=== PATIENT | female | born 1990 | race Caucasian/White ===

== ENCOUNTER 2017-05-17 22:22 | Emergency (ER) | payer OTHER ==
--- NOTE | 2017-05-17 22:45 | ERPHSYRPT ---
- History of Present Illness Time Seen by Provider: 05/17/17 22:41 Historian: patient, family Exam Limitations: no limitations Patient Subjective Stated Complaint: vomitting and nausea, pain in back Triage Nursing Assessment: pt alert and oriented, ate cheesburger at [employer] last nite and has been puking and running fever since then Physician History: pt without abd pain , but has back pain and vomiting and suspects food poisoning from yesterday. abd is soft and nontender at this time; Timing/Duration: today Activities at Onset: none Abdominal Pain Onset Location: other (no pain in abd) Pain Radiation: back Severity of Pain-Max: moderate Severity of Pain-Current: moderate Modifying Factors: Improves With: nothing Associated Symptoms: back, fever/chills, vomiting Previous symptoms: no prior history Allergies/Adverse Reactions: No Known Drug Allergies Allergy (Unverified 07/06/12 23:18) Home Medications: Vits W-Ca,Fe,FA(<1Mg) [] 1 each PO 07/06/12 [History] Hx Tetanus, Diphtheria Vaccination/Date Given: Yes Hx Influenza Vaccination/Date Given: No Hx Pneumococcal Vaccination/Date Given: No Immunizations Up to Date: Yes - Review of Systems Constitutional: Fever, Chills Eyes: No Symptoms Ears, Nose, & Throat: No Symptoms Respiratory: No Cough, No Dyspnea Cardiac: No Chest Pain, No Edema, No Syncope Abdominal/Gastrointestinal: Nausea, Vomiting, No Abdominal Pain, No Diarrhea Genitourinary Symptoms: No Dysuria Musculoskeletal: No Back Pain, No Neck Pain Skin: No Rash Neurological: No Dizziness, No Focal Weakness, No Sensory Changes Psychological: No Symptoms Endocrine: No Symptoms Hematologic/Lymphatic: No Symptoms Immunological/Allergic: No Symptoms All Other Systems: Reviewed and Negative - Past Medical History Pertinent Past Medical History: No History: Other - Past Surgical History Past Surgical History: Yes Genitourinary: Other Other Surgical History: D&C - Social History Smoking Status: Current every day smoker Exposure to second hand smoke: No Drug Use: none Patient Lives Alone: No - Female History Hx Now: Yes (8 weeks) - Nursing Vital Signs Nursing Vital Signs: Initial Vital Signs Temperature 102.2 F Temperature Source Oral Pulse Rate 106 Respiratory Rate 18 Blood Pressure [Right Arm] 100/53 Pain Intensity 0 - Physical Exam General Appearance: mild distress, alert Eye Exam: PERRL/EOMI, eyes nml inspection Ears, Nose, Throat Exam: normal ENT inspection, pharynx normal, moist mucous membranes Neck Exam: normal inspection, non-tender, supple, full range of motion Respiratory Exam: normal breath sounds, lungs clear, No respiratory distress Cardiovascular Exam: regular rate/rhythm, normal heart sounds Gastrointestinal/Abdomen Exam: soft, No tenderness, No mass Pelvic Exam: deferred Rectal Exam: deferred Back Exam: normal inspection, normal range of motion, No CVA tenderness, No vertebral tenderness Extremity Exam: normal inspection, normal range of motion, pelvis stable Neurologic Exam: alert, oriented x 3, cooperative, normal mood/affect, nml cerebellar function, sensation nml, No motor deficits Skin Exam: normal color, warm, dry SpO2 Interpretation: normal SpO2: 96 Oxygen Delivery: Room Air - Course Nursing assessment & vital signs reviewed: Yes Ordered Tests: Active Orders 24 hr Category Date Time Status IV Insertion STAT Care 05/17/17 22:46 Active AMYLASE Stat Lab 05/17/17 23:00 Completed CBC W DIFF Stat Lab 05/17/17 23:00 Completed CMP Stat Lab 05/17/17 23:00 Completed CULTURE,URINE Stat Lab 05/17/17 23:00 Received HCG QUALITATIVE,SERUM Stat Lab 05/17/17 23:00 Completed LIPASE Stat Lab 05/17/17 23:00 Completed Lactic Acid Stat Lab 05/17/17 22:46 Completed Lactic Acid Stat Lab 05/18/17 01:05 Completed UA W/ MICROSCOPIC Stat Lab 05/17/17 23:00 Completed Medication Summary Discontinued Medications Generic Name Dose Route Start Last Admin Trade Name nOelia PRN Reason Stop Dose Admin Acetaminophen 650 mg 05/17/17 23:35 Tylenol 325 Mg PO 05/17/17 23:36 STAT ONE Acetaminophen Confirm 05/17/17 23:38 Feverall 325 Mg Administered 05/17/17 23:39 Dose 650 mg .ROUTE .STK-MED ONE Acetaminophen 650 mg 05/17/17 23:41 05/17/17 23:46 Feverall 650 Mg MO 05/17/17 23:42 650 mg STAT ONE Administration Famotidine 20 mg 05/17/17 22:46 05/17/17 23:08 Pepcid 20 Mg Vial IV 05/17/17 22:47 20 mg STAT ONE Administration Famotidine Confirm 05/17/17 23:01 Pepcid 20 Mg Vial Administered 05/17/17 23:02 Dose 20 mg IV .STK-MED ONE Sodium Chloride 1,000 mls @ 999 mls/hr 05/17/17 22:46 05/17/17 23:04 Sodium Chloride 0.9% 1000 Ml IV 05/17/17 23:46 999 mls/hr .Q1H1M STA Administration Sodium Chloride Confirm 05/17/17 23:01 Sodium Chloride 0.9% 1000 Ml Administered 05/17/17 23:02 Dose 1,000 mls @ ud .ROUTE .STK-MED ONE Sodium Chloride 1,000 mls @ 999 mls/hr 05/18/17 00:33 05/18/17 00:35 Sodium Chloride 0.9% 1000 Ml IV 05/18/17 01:33 999 mls/hr .Q1H1M STA Administration Sodium Chloride Confirm 05/18/17 00:34 Sodium Chloride 0.9% 1000 Ml Administered 05/18/17 00:35 Dose 1,000 mls @ ud .ROUTE .STK-MED ONE Ceftriaxone Sodium/Dextrose 1 g in 50 mls @ 100 mls/hr 05/18/17 01:10 01:29 Rocephin 1 Gm-D5w 50 Ml Bag IV 05/18/17 01:39 100 mls/hr STAT STA Administration Ceftriaxone Sodium/Dextrose Confirm 05/18/17 01:25 Rocephin 1 Gm-D5w 50 Ml Bag Administered 05/18/17 01:26 Dose 1 g in 50 mls @ ud IV .STK-MED ONE Ondansetron HCl 4 mg 05/17/17 22:46 05/17/17 23:06 Zofran 4 Mg/2 Ml Vial IV 05/17/17 22:47 4 mg STAT ONE Administration Ondansetron HCl Confirm 05/17/17 23:01 Zofran 4 Mg/2 Ml Vial Administered 05/17/17 23:02 Dose 4 mg .ROUTE .STK-MED ONE Pantoprazole Sodium 40 mg 05/17/17 22:46 05/17/17 23:08 Protonix 40 Mg Iv IV 05/17/17 22:47 40 mg STAT ONE Administration Pantoprazole Sodium Confirm 05/17/17 23:01 Protonix 40 Mg Iv Administered 05/17/17 23:02 Dose 40 mg IV .STK-MED ONE Lab/Rad Data: Laboratory Result Diagrams 05/17/17 23:00 05/17/17 23:00 Laboratory Results 05/18/17 05/17/17 05/17/17 Range/Units 01:05 23:00 23:00 WBC (4.0-10.5) K/mm3 RBC (4.1-5.4) M/mm3 Hgb (12.0-16.0) gm/dl Hct (35-47) % MCV (78-100) fl MCH (26-32) pg MCHC (32-36) g/dl RDW (11.5-14.0) % Plt Count (150-450) K/mm3 MPV (6-9.5) fl Gran % (36.0-66.0) % Lymphocytes % (24.0-44.0) % Monocytes % (0.0-12.0) % Eosinophils % (0.00-5.0) % Basophils % (0.0-0.4) % Basophils # (0-0.4) Sodium 136 (136-145) mEq/L Potassium 3.7 (3.5-5.1) mEq/L Chloride 100 (98-107) mEq/L Carbon Dioxide 22.8 (21-32) mEq/L Anion Gap 16.8 H (5-15) MEQ/L BUN 12 (9-20) mg/dL Creatinine 1.39 H (0.55-1.30) mg/dl Estimated GFR 49 ML/MIN Glucose 163 H (70-110) MG/DL Lactic Acid 1.1 (0.4-2.0) Calcium 9.2 (8.5-10.1) mg/dL Total Bilirubin 0.70 (0.2-1.0) mg/dL AST 9 L (15-37) U/L ALT 14 (12-78) U/L Alkaline Phosphatase 110 (46-116) U/L Serum Total Protein 8.0 (6.4-8.2) gm/dL Albumin 3.8 (3.4-5.0) g/dL Amylase 33 (25-115) U/L Lipase 65 L (73-393) U/L Serum , Qual NEGATIVE (Negative) Ur Collection Type Urine Color (YELLOW) Urine Appearance (CLEAR) Urine pH (5-6) Ur Specific [place] (1.005-1.025) Urine Protein (Negative) Urine Ketones (NEGATIVE) Urine Blood (0-5) José/ul Urine Nitrite (NEGATIVE) Urine Bilirubin (NEGATIVE) Urine Urobilinogen (0-1) mg/dL Ur Leukocyte Esterase (NEGATIVE) Urine Microscopic RBC (0-2) /HPF Urine Microscopic WBC (0-5) /HPF Ur Epithelial Cells (FEW) /HPF Urine Bacteria (NEGATIVE) /HPF Urine Glucose (NEGATIVE) mg/dL Specimen Received 05/17/17 05/17/17 05/17/17 Range/Units 23:00 23:00 22:46 WBC 12.0 H (4.0-10.5) K/mm3 RBC 4.76 (4.1-5.4) M/mm3 Hgb 13.4 (12.0-16.0) gm/dl Hct 40.8 (35-47) % MCV 85.7 (78-100) fl MCH 28.2 (26-32) pg MCHC 32.8 (32-36) g/dl RDW 15.8 H (11.5-14.0) % Plt Count 179 (150-450) K/mm3 MPV 11.8 H (6-9.5) fl Gran % 88.5 H (36.0-66.0) % Lymphocytes % 6.3 L (24.0-44.0) % Monocytes % 5.0 (0.0-12.0) % Eosinophils % 0.0 (0.00-5.0) % Basophils % 0.2 (0.0-0.4) % Basophils # 0.02 (0-0.4) Sodium (136-145) mEq/L Potassium (3.5-5.1) mEq/L Chloride (98-107) mEq/L Carbon Dioxide (21-32) mEq/L Anion Gap (5-15) MEQ/L BUN (9-20) mg/dL Creatinine (0.55-1.30) mg/dl Estimated GFR ML/MIN Glucose (70-110) MG/DL Lactic Acid 2.4 H (0.4-2.0) Calcium (8.5-10.1) mg/dL Total Bilirubin (0.2-1.0) mg/dL AST (15-37) U/L ALT (12-78) U/L Alkaline Phosphatase (46-116) U/L Serum Total Protein (6.4-8.2) gm/dL Albumin (3.4-5.0) g/dL Amylase (25-115) U/L Lipase (73-393) U/L Serum , Qual (Negative) Ur Collection Type CLEAN CATCH Urine Color YELLOW (YELLOW) Urine Appearance CLOUDY (CLEAR) Urine pH 6.0 (5-6) Ur Specific [place] 1.025 (1.005-1.025) Urine Protein 100 (Negative) Urine Ketones NEGATIVE (NEGATIVE) Urine Blood 250 (0-5) José/ul Urine Nitrite POSITIVE (NEGATIVE) Urine Bilirubin NEGATIVE (NEGATIVE) Urine Urobilinogen NORMAL (0-1) mg/dL Ur Leukocyte Esterase 2+ (NEGATIVE) Urine Microscopic RBC 5-10 (0-2) /HPF Urine Microscopic WBC >100 (0-5) /HPF Ur Epithelial Cells MODERATE (FEW) /HPF Urine Bacteria MANY (NEGATIVE) /HPF Urine Glucose NEGATIVE (NEGATIVE) mg/dL Specimen Received 05/17/17 2300 - Progress Progress: improved, re-examined Progress Note: 05/18/17 01:46 symptoms resolved in ED; discussed with pt and will place on ab to cover infect diarrhea and UTI and return if any problems ; pt is advised that undetected pathology could still be evolving and need for f/u and retesting of urine as well. Counseled pt/family regarding: lab results, diagnosis, need for follow-up - Departure Time of Disposition: 01:48 Departure Disposition: Home Clinical Impression: UTI (urinary tract infection) Condition: Good Critical Care Time: No Instructions: Vomiting -- Adult, Urinary Tract Infection (UTI), Diarrhea and Traveler's Diarrhea -- Adult Additional Instructions: followup to retest urine with your dr and return meantime if not improving; There may be additional problems which have not been detected yet. also some renal function is elevated and needs retesting with your Dr as well. Prescriptions: Promethazine HCl 25 mg Supp [Phenergan 25 mg Supp] 25 mg MO Q8HPRN PRN # 10 supp.rect PRN Reason: Nausea Cephalexin Mh 500 mg [Keflex 500 mg] 500 mg PO TID #30 capsule Ciprofloxacin [Cipro 500 MG] 500 mg PO BID #10 tablet
[2017-05-17] MEDS ORDERED: Pepcid 20 MG VIAL IV ONE ×2 (22:46→23:01)
[2017-05-17] MEDS ORDERED: Zofran 4 MG/2 ML VIAL IV ONE (22:46)
[2017-05-17] MEDS ORDERED: Sodium Chloride 0.9% 1000 ML 1,000 ML IV STA (22:46)
[2017-05-17] MEDS ORDERED: PROTONIX 40 MG IV IV ONE ×2 (22:46→23:01)
[2017-05-17 22:57] LABS: Lactic Acid 2.4 (0.4-2.0)
[2017-05-17] MEDS ORDERED: Sodium Chloride 0.9% 1000 ML 1,000 ML ONE (23:01)
[2017-05-17] MEDS ORDERED: Zofran 4 MG/2 ML VIAL ONE (23:01)
[2017-05-17 23:06] LABS: BASOPHIL % 0.2 % (0.0-0.4); Granulocytes % 88.5 % (36.0-66.0); Lymphocytes % 6.3 % (24.0-44.0); Mean Cell Volume 85.7 fl (78-100); Mean Corpuscular Hemoglobin 28.2 pg (26-32); Mean Platelet Volume 11.8 fl (6-9.5); Platelet Count 179 K/mm3 (150-450); Red Blood Count 4.76 M/mm3 (4.1-5.4); Red Cell Distribution Width 15.8 % (11.5-14.0)
[2017-05-17 23:17] LABS: ALBUMIN 3.8 g/dL (3.4-5.0); ANION GAP 16.8 MEQ/L (5-15); BILIRUBIN,TOTAL 0.7 mg/dL (0.2-1.0); Carbon Dioxide 22.8 mEq/L (21-32); Potassium 3.7 mEq/L (3.5-5.1)
[2017-05-17] MEDS ORDERED: TYLENOL 325 MG PO ONE (23:35)
[2017-05-17] MEDS ORDERED: FEVERALL 325 MG ONE (23:38)
[2017-05-17] MEDS ORDERED: FEVERALL 650 MG PR ONE (23:41)
[2017-05-17 23:43] LABS: ADD URINE CULTURE? YES (NO); Bacteria MANY /HPF (NEGATIVE); Bilirubin NEGATIVE (NEGATIVE); Blood 250 Ery/ul (0-5); COMPLETE URINE MICROSCOPIC? YES; Collection Type CLEAN CATCH; Epithelial Cells MODERATE /HPF (FEW); Glucose NEGATIVE (NEGATIVE); Leukocyte Esterase 2+ (NEGATIVE); WBC >100 /HPF (0-5)
[2017-05-18] MEDS ORDERED: Sodium Chloride 0.9% 1000 ML 1,000 ML IV STA (00:33)
[2017-05-18] MEDS ORDERED: Sodium Chloride 0.9% 1000 ML 1,000 ML ONE (00:34)
[2017-05-18] MEDS ORDERED: ROCEPHIN 1 Gm-D5w 50 ml Bag** 1 G/50 ML IVPB IV STA (01:10)
[2017-05-18] MEDS ORDERED: ROCEPHIN 1 Gm-D5w 50 ml Bag** 1 G/50 ML IVPB IV ONE (01:25)
[2017-05-18 02:05] VITALS: BP 100/53; PULSE 100; O2SAT 100
== END 2017-05-18 02:06 | disposition home or self-care (01) ==
LOC: ED 22:22
DX: N39.0 Urinary tract infection, site not specified (principal); R11.2 Nausea with vomiting, unspecified; M54.5 Low back pain
CPT/HCPCS: 36000; 36415; 80053; 81000; 82150; 83605; 83690; 84703; 85025; 87077; 87086; 87186; 96360; 96361; 96365; 99284; J0696; J2405; A9270-GY

== ENCOUNTER 2023-08-18 13:29 | Emergency (ER) | payer OTHER ==
--- NOTE | 2023-08-18 13:33 | ERPHSYRPT ---
- History of Present Illness Time Seen by Provider: 08/18/23 13:33 Source: patient, other (Significant other provided independent, additional medical history) Exam Limitations: clinical condition Physician History: This is a 32-year-old white female patient of Dr. Vizcarra who has had sinus tachycardia as far back as January 2023. She states that her heart rate typically runs in the 110 to 115 bpm. She has had several specialist out of [facility] evaluate her. The anatomic pathology manager and emergency vehicle operations instructor were waiting for the validation specialist to perform there work-up. The validation specialist told the patient that rheumatology is not her primary issue. The emergency vehicle operations instructor evaluated her and stated that hematology is not her primary issue. Real Estate Instructor, Payal Miller, per patient report stated that the patient needed to take vitamins and drink more fluids. A cardiac stress test was performed today. The patient was found to have a heart rate in the 140 bpm. The patient was short of breath. Her heart rate never came down after brief evaluation and therefore patient was sent to the emergency department for further evaluation and management. Patient has a prescription for metoprolol which she only takes as needed. She states that this medication does slow her heart rate down. However, it also makes her dizzy and she has had syncopal episodes because it dropped her blood pressure significantly. Patient is a daily smoker of cigarettes. Associated with the shortness of breath today was some sharp pain in the left anterior chest without radiation. She also feels a little weak. She states that the heart rate of 130 to 140 bpm is fast for her. She has an appointment to see a anatomic pathology manager at [facility] [place] in October 2023. Timing/Duration: today Activities at Onset: none Quality: sharpness Location: other (Left anterior chest) Chest Pain Radiation: no radiation Severity of Pain-Max: mild Severity of Pain-Current: mild Nitro Today/Relief: no nitro taken today Aspirin Treatment Today: 81 mg x 4, provided by ED Associated Symptoms: denies symptoms Prior Chest Pain/Cardiac Workup: stress test (Attempted a stress test today. Was not able to complete), recently seen/treated Allergies/Adverse Reactions: No Known Drug Allergies Allergy (Unverified 07/06/12 23:18) Home Medications: Metoprolol Succinate 50 mg [Toprol Xl 50 MG] 50 mg PO DAILY PRN 08/18/23 [History] Prednisone 5 mg [Deltasone 5 mg] 5 mg PO BID 08/18/23 [History] Hx Tetanus, Diphtheria Vaccination/Date Given: Yes Hx Influenza Vaccination/Date Given: No Hx Pneumococcal Vaccination/Date Given: No Travel Risk - International Travel Have you traveled outside of the country in past 3 weeks: No - Coronavirus Screening Are you exhibiting any of the following symptoms?: No Close contact with a COVID-19 positive Pt in past 14-21 Days: No - Review of Systems Constitutional: No Symptoms Eyes: No Symptoms Ears, Nose, & Throat: No Symptoms Respiratory: No Symptoms Cardiac: Chest Pain (Left anterior chest) Abdominal/Gastrointestinal: No Symptoms Genitourinary Symptoms: No Symptoms Musculoskeletal: No Symptoms Skin: No Symptoms Neurological: No Symptoms Psychological: No Symptoms Endocrine: No Symptoms Hematologic/Lymphatic: No Symptoms Immunological/Allergic: No Symptoms All Other Systems: Reviewed and Negative - Past Medical History Pertinent Past Medical History: No History: Other - Past Surgical History Past Surgical History: Yes Genitourinary: Other Other Surgical History: D&C - Social History Smoking Status: Current every day smoker Exposure to second hand smoke: No Drug Use: none Patient Lives Alone: No - Nursing Vital Signs Nursing Vital Signs: Initial Vital Signs Temperature 98.8 F 08/18/23 13:29 Pulse Rate 132 H 08/18/23 13:29 Respiratory Rate 26 H 08/18/23 13:29 Blood Pressure 102/52 08/18/23 13:29 O2 Sat by Pulse Oximetry 96 08/18/23 13:29 Pain Scale Pain Intensity 0 - Physical Exam General Appearance: no apparent distress, alert, anxiety Eye Exam: PERRL/EOMI, eyes nml inspection Ears, Nose, Throat Exam: normal ENT inspection, moist mucous membranes Neck Exam: normal inspection, non-tender, supple, full range of motion Respiratory Exam: normal breath sounds, chest tenderness, lungs clear, respiratory distress, airway intact Cardiovascular Exam: tachycardia Gastrointestinal/Abdomen Exam: soft, normal bowel sounds, No tenderness Pelvic Exam: not done Rectal Exam: not done Back Exam: normal inspection, normal range of motion, No CVA tenderness, No vertebral tenderness Extremity Exam: normal inspection, normal range of motion, pelvis stable Neurologic Exam: alert, oriented x 3, cooperative, rn intensive care unit II-XII nml as tested, normal mood/affect, nml cerebellar function, nml station & gait, sensation nml Skin Exam: normal color, warm, dry Lymphatic Exam: No adenopathy SpO2 Interpretation: normal O2 Delivery: Room Air - Course Nursing assessment & vital signs reviewed: Yes EKG Interpreted by Me: RATE (131), Sinus Tach, NORMAL AXIS, NORMAL INTERVALS, NORMAL QRS, NORMAL ST-T, Other (No acute ischemic changes on today's twelve-lead EKG. This twelve-lead EKG was performed just prior to the patient arrival to our emergency department at 144 on 08/18/2023) Ordered Tests: Active Orders 24 hr Category Date Time Status Applied Behavior Specialist STAT Care 08/18/23 13:50 Active Clean Catch Urine Specimen STAT Care 08/18/23 13:49 Active EKG-ER Only STAT Care 08/18/23 13:49 Active IV Insertion STAT Care 08/18/23 13:49 Active Pulse Oximetry (ED) STAT Care 08/18/23 13:49 Active ABDOMEN AND PELVIS W/0 CONTRAS [CT] Stat Exams 08/18/23 15:57 Completed CHEST WITH CONTRAST [CT] Stat Exams 08/18/23 14:37 Completed CBC W DIFF Stat Lab 08/18/23 13:45 Completed CMP Stat Lab 08/18/23 13:45 Completed CULTURE,URINE Stat Lab 08/18/23 16:58 Received D-DIMER QUANTITATIVE Stat Lab 08/18/23 13:45 Completed MAGNESIUM Stat Lab 08/18/23 13:45 Completed NT PRO BNPII Stat Lab 08/18/23 13:45 Completed T4 (Thyroxine) Stat Lab 08/18/23 13:45 Completed TROPONIN Q4H Lab 08/18/23 13:45 Completed TROPONIN Q4H Lab 08/18/23 18:00 Ordered TROPONIN Q4H Lab 08/18/23 22:00 Ordered TSH, 3RD Generation Stat Lab 08/18/23 13:45 Completed UA W/RFX UR CULTURE Stat Lab 08/18/23 16:58 Completed Urine Triage Profile Stat Lab 08/18/23 16:58 Completed Medication Summary Generic Name Dose Route Start Last Admin Trade Name Freq PRN Reason Stop Dose Admin Sodium Chloride 500 mls @ 100 mls/hr 08/18/23 16:00 08/18/23 15:52 Sodium Chloride 0.9% 500 Ml IV 09/17/23 15:59 100 mls/hr .Q5H PAT Administration Discontinued Medications Generic Name Dose Route Start Last Admin Trade Name Onelia PRN Reason Stop Dose Admin Aspirin 324 mg 08/18/23 13:49 08/18/23 14:05 Aspirin 81 Mg Tab.Chew PO 08/18/23 13:50 324 mg STAT ONE Administration Aspirin Confirm 08/18/23 14:02 Aspirin 81 Mg Tab.Chew Administered 08/18/23 14:03 Dose 324 mg .ROUTE .STK-MED ONE Sodium Chloride 1,000 mls @ 999 mls/hr 08/18/23 13:49 08/18/23 15:14 Sodium Chloride 0.9% 1000 Ml IV 08/18/23 14:49 Infused .Q1H1M STA Infusion Sodium Chloride Confirm 08/18/23 14:02 Sodium Chloride 0.9% 1000 Ml Administered 08/18/23 14:03 Dose 1,000 mls @ ud .ROUTE .STK-MED ONE Ceftriaxone Sodium/Dextrose 1 g in 50 mls @ 100 mls/hr 08/18/23 17:56 08/18/23 18:11 Rocephin 1 Gm-D5w 50 Ml Bag IV 08/18/23 18:25 100 ml/hr STAT STA 100 mls/hr Administration Ceftriaxone Sodium/Dextrose Confirm 08/18/23 18:09 Rocephin 1 Gm-D5w 50 Ml Bag Administered 08/18/23 18:10 Dose 1 g in 50 mls @ ud IV .STK-MED ONE Metoprolol Tartrate 2.5 mg 08/18/23 13:49 08/18/23 14:05 Metoprolol Tartrate 5 Mg/5 Ml Vial IV 08/18/23 13:50 2.5 mg STAT ONE Administration Metoprolol Tartrate Confirm 08/18/23 14:02 Metoprolol Tartrate 5 Mg/5 Ml Vial Administered 08/18/23 14:03 Dose 5 mg IV .STK-MED ONE Lab/Rad Data: Laboratory Result Diagrams 08/18/23 13:45 08/18/23 13:45 Laboratory Results 08/18/23 08/18/23 08/18/23 Range/Units 16:58 16:58 13:45 WBC (4.0-10.5) x10^3/uL RBC (4.1-5.4) x10^6/uL Hgb (12.0-16.0) g/dL Hct (35-47) % MCV (78-100) fL MCH (26-32) pg MCHC (32-36) g/dL RDW (11.5-14.0) % Plt Count (150-450) x10^3/uL MPV (7.5-11.0) fL Gran % (36.0-66.0) % Immature Gran % (Auto) (0.00-0.4) % Nucleat RBC Rel Count (0.00-0.1) % Eos # (Auto) (0-0.5) x10^3/uL Immature Gran # (Auto) (0.00-0.03) x10^3u/L Absolute Lymphs (auto) (1.0-4.6) x10^3/uL Absolute Monos (auto) (0.0-1.3) x10^3/uL Absolute Nucleated RBC (0.00-0.01) x10^3u/L Lymphocytes % (24.0-44.0) % Monocytes % (0.0-12.0) % Eosinophils % (0.00-5.0) % Basophils % (0.0-0.4) % Absolute Granulocytes (1.4-6.9) x10^3/uL Basophils # (0-0.4) x10^3/uL D-Dimer (0.0-0.50) mg/L Sodium (137-145) mmol/L Potassium (3.5-5.1) mmol/L Chloride (98-107) mmol/L Carbon Dioxide (22-30) mmol/L Anion Gap (5-15) MEQ/L BUN (7-17) mg/dL Creatinine (0.52-1.04) mg/dL Estimated GFR ML/MIN Glucose (74-106) mg/dL Calcium (8.4-10.2) mg/dL Magnesium (1.6-2.3) mg/dL Total Bilirubin (0.2-1.3) mg/dL AST (14-36) U/L ALT (0-35) U/L Alkaline Phosphatase (38-126) U/L Troponin I < 0.012 (0.000-0.034) ng/mL NT-Pro-B Natriuret Pep (<300) pg/mL Serum Total Protein (6.3-8.2) g/dL Albumin (3.5-5.0) g/dL Thyroxine (T4) (5.53-10.96) ug/dL TSH 3rd Generation (0.47-4.68) mIU/L Urine Color Yellow (Yellow) Urine Appearance Turbid A (Clear) Urine pH 6.0 (4.6-8.0) Ur Specific Dawson >=1.030 A (1.005-1.030) Urine Protein 30 (Negative) Urine Glucose (UA) Negative (Negative) mg/dL Urine Ketones Negative (Negative) Urine Blood Moderate A (Negative) Urine Nitrite Negative (Negative) Urine Bilirubin Negative (Negative) Urine Urobilinogen 2.0 A (0.2) mg/dL Ur Leukocyte Esterase Large A (Negative) U Hyaline Cast (Auto) NONE SEEN (0-2) /LPF Urine Microscopic RBC 3-5 (0-5) /HPF Urine Microscopic WBC >100 A (0-5) /HPF Ur Epithelial Cells Few (None Seen) /HPF Urine Bacteria Many A (None Seen) /HPF Urine Culture Reflexed YES (NO) Urine Opiates Level NEGATIVE (NEGATIVE) Ur Methadone NEGATIVE (NEGATIVE) Urine Barbiturates NEGATIVE (NEGATIVE) Ur Phencyclidine (PCP) NEGATIVE (NEGATIVE) Urine Amphetamine NEGATIVE (NEGATIVE) U Benzodiazepine Level NEGATIVE (NEGATIVE) Urine Cocaine NEGATIVE (NEGATIVE) Urine Marijuana (THC) POSITIVE (NEGATIVE) Slides for Path Review 08/18/23 08/18/23 08/18/23 Range/Units 13:45 13:45 13:45 WBC 12.8 H (4.0-10.5) x10^3/uL RBC 4.31 (4.1-5.4) x10^6/uL Hgb 11.0 L (12.0-16.0) g/dL Hct 38.2 (35-47) % MCV 88.6 (78-100) fL MCH 25.5 L (26-32) pg MCHC 28.8 L (32-36) g/dL RDW 15.9 H (11.5-14.0) % Plt Count 561 H (150-450) x10^3/uL MPV 9.7 (7.5-11.0) fL Gran % 72.9 H (36.0-66.0) % Immature Gran % (Auto) 0.9 H (0.00-0.4) % Nucleat RBC Rel Count 0.0 (0.00-0.1) % Eos # (Auto) 0.25 (0-0.5) x10^3/uL Immature Gran # (Auto) 0.11 H (0.00-0.03) x10^3u/L Absolute Lymphs (auto) 2.35 (1.0-4.6) x10^3/uL Absolute Monos (auto) 0.67 (0.0-1.3) x10^3/uL Absolute Nucleated RBC 0.00 (0.00-0.01) x10^3u/L Lymphocytes % 18.4 L (24.0-44.0) % Monocytes % 5.2 (0.0-12.0) % Eosinophils % 2.0 (0.00-5.0) % Basophils % 0.6 (0.0-0.4) % Absolute Granulocytes 9.31 H (1.4-6.9) x10^3/uL Basophils # 0.08 (0-0.4) x10^3/uL D-Dimer 2.63 H* (0.0-0.50) mg/L Sodium 135 L (137-145) mmol/L Potassium 4.1 (3.5-5.1) mmol/L Chloride 96 L (98-107) mmol/L Carbon Dioxide 28 (22-30) mmol/L Anion Gap 14.9 (5-15) MEQ/L BUN 11 (7-17) mg/dL Creatinine 0.82 (0.52-1.04) mg/dL Estimated GFR > 60.0 ML/MIN Glucose 111 H (74-106) mg/dL Calcium 9.3 (8.4-10.2) mg/dL Magnesium 2.3 (1.6-2.3) mg/dL Total Bilirubin 0.50 (0.2-1.3) mg/dL AST 27 (14-36) U/L ALT 20 (0-35) U/L Alkaline Phosphatase 123 (38-126) U/L Troponin I (0.000-0.034) ng/mL NT-Pro-B Natriuret Pep 62.0 (<300) pg/mL Serum Total Protein 8.8 H (6.3-8.2) g/dL Albumin 3.9 (3.5-5.0) g/dL Thyroxine (T4) 8.61 (5.53-10.96) ug/dL TSH 3rd Generation 1.140 (0.47-4.68) mIU/L Urine Color (Yellow) Urine Appearance (Clear) Urine pH (4.6-8.0) Ur Specific Dawson (1.005-1.030) Urine Protein (Negative) Urine Glucose (UA) (Negative) mg/dL Urine Ketones (Negative) Urine Blood (Negative) Urine Nitrite (Negative) Urine Bilirubin (Negative) Urine Urobilinogen (0.2) mg/dL Ur Leukocyte Esterase (Negative) U Hyaline Cast (Auto) (0-2) /LPF Urine Microscopic RBC (0-5) /HPF Urine Microscopic WBC (0-5) /HPF Ur Epithelial Cells (None Seen) /HPF Urine Bacteria (None Seen) /HPF Urine Culture Reflexed (NO) Urine Opiates Level (NEGATIVE) Ur Methadone (NEGATIVE) Urine Barbiturates (NEGATIVE) Ur Phencyclidine (PCP) (NEGATIVE) Urine Amphetamine (NEGATIVE) U Benzodiazepine Level (NEGATIVE) Urine Cocaine (NEGATIVE) Urine Marijuana (THC) (NEGATIVE) Slides for Path Review YES - Progress Progress: improved, re-examined Air Movement: good Progress Note: 08/18/23 16:08 This patient's medical issue is 1 of moderate to high complexity. Level complexity in the work-up performed is based on review of the patient's past medical history, review of the patient's medication list, review the patient's drug allergy list, history present illness and physical findings on examination. The work-up in this patient includes placement of intravenous line, infusion of normal saline solution, infusion 2.5 mg intravenous Lopressor, CBC, CMP, D- dimer, troponin, twelve-lead EKG, T4 and TSH, and urinalysis. I reviewed the results of the work-up, the D-dimer was significantly elevated. I did a CT scan of the chest with contrast which is negative for pulmonary embolism. There is no acute cardiopulmonary process. There is incompletely visualized massive left renal hydronephrosis and perinephric fluid/stranding with 2.3 cm calculus present within it. I reexamined the patient. Patient's vital signs are as follows heart rate now 99 bpm and systolic blood pressure is 102. Patient's respiratory rate is 17. Patient is afebrile. Room air oxygen saturation levels 99%. Patient is in no distress. 08/18/23 16:58 Patient was asked 3 different times about her possibility of being . She absolutely denies being therefore we proceeded with the radiographic studies. 08/18/23 17:[address] scan of the abdomen pelvis without contrast shows massive hydronephrosis and enlarged left kidney with multiple macro calculi including a 2.9 x 2.0 x 3.6 cm UPJ staghorn calculus causing complete obstructive uropathy. 08/18/23 18:27 I reviewed the CAT scan of the chest with contrast on the CT scan of the abdomen without contrast results with this patient. Her massive hydronephrosis and a large left kidney and multiple macro calculi had been present for quite some time. The patient has no complaints of pain at this time. She does not want to be transferred to hospital. It is inappropriate for us to admit this patient into this hospital or place her in observation. Her intra-abdominal, renal issue is not acute. Her heart rate is now in the 80s to 90s range. Her systolic blood pressure is in the 90-100 range. She is not dizzy. She has no chest pain. She is not short of breath. Her room air oxygenation is 100%. She wants to be discharged to home with a list of urologist which she will contact tomorrow. She will also contact her anatomic pathology manager tomorrow as well. Blood Culture(s) Obtained: No Antibiotics given: Yes Counseled pt/family regarding: lab results, diagnosis, need for follow-up, rad results Medical Desision Making - Independent Historian Additional History obtained from: Spouse - Diagnostic Testing Diagnostic test were ordered, analyzed, and reviewed by me: Yes Radiological Interpretation: Reviewed by me, Teleradiologist Report - Risk of complications The pt has a mod risk of morbidity or mortality based on: Need for prescription drug management - Departure Departure Disposition: Home Clinical Impression: Sinus tachycardia, Urinary tract infection, Hydronephrosis of left kidney, Obstructive uropathy, Renal calculus, left Condition: Stable Critical Care Time: Yes Critical Care Time(excluding separately billable procedures): Critical 30-74 mins (45 minutes) Referrals: HELEN VIZCARRA MD [Primary Care Provider] - Follow up/PCP as directed Additional Instructions: Drink plenty of fluids. Take your antibiotics and other medication as prescribed. Call your anatomic pathology manager tomorrow morning, 08/19/2023, to make arrangements for follow-up appointment the next 1 to 2 days. Call the urologist tomorrow morning, 08/19/2023, from the list that we provided you. Make arrangements for follow-up appointment in the next 1 to 2 days. Prescriptions: Ciprofloxacin [Cipro 500 MG] 500 mg PO BID #14 tablet
[2023-08-18 13:36] VITALS: TEMP 98.8
[2023-08-18] MEDS ORDERED: Sodium Chloride 0.9% 1000 ML 1,000 ML IV STA (13:49)
[2023-08-18] MEDS ORDERED: LOPRESSOR INJECTION IV ONE ×2 (13:49→14:02)
[2023-08-18] MEDS ORDERED: BABY ASPIRIN 81 MG CHEW PO ONE (13:49)
[2023-08-18] MEDS ORDERED: Sodium Chloride 0.9% 1000 ML 1,000 ML ONE (14:02)
[2023-08-18] MEDS ORDERED: BABY ASPIRIN 81 MG CHEW ONE (14:02)
[2023-08-18 14:06] LABS: Absolute Neutrophil Ct (ANC) 9.31 x10^3/uL (1.4-6.9); BASOPHIL % 0.6 % (0.0-0.4); Basophil (Absolute #) 0.08 x10^3/uL (0-0.4); Eosinophil (Absolute #) 0.25 x10^3/uL (0-0.5); Hematocrit 38.2 % (35-47); IMMATURE GRAN # 0.11 x10^3u/L (0.00-0.03); IMMATURE GRAN % 0.9 % (0.00-0.4); Lymphocyte (Absolute #) 2.35 x10^3/uL (1.0-4.6); Lymphocytes % 18.4 % (24.0-44.0); Mean Cell Volume 88.6 fL (78-100); Mean Corpuscular Hemoglobin 25.5 pg (26-32); Mean Corpuscular Hgb Concent. 28.8 g/dL (32-36); Mean Platelet Volume 9.7 fL (7.5-11.0); Monocyte (Absolute #) 0.67 x10^3/uL (0.0-1.3); Monocytes % 5.2 % (0.0-12.0); Neutrophil % 72.9 % (36.0-66.0); Platelet Count 561 x10^3/uL (150-450); Red Blood Count 4.31 x10^6/uL (4.1-5.4); Red Cell Distribution Width 15.9 % (11.5-14.0); White Blood Count 12.8 x10^3/uL (4.0-10.5)
[2023-08-18 14:42] LABS: Slide Review 1 YES
[2023-08-18 14:52] LABS: ALBUMIN 3.9 g/dL (3.5-5.0); ALKALINE PHOSPHATASE 123 U/L (38-126); ANION GAP 14.9 MEQ/L (5-15); BLOOD UREA NITROGEN 11 mg/dL (7-17); CHLORIDE 96 mmol/L (98-107); Calcium 9.3 mg/dL (8.4-10.2); Carbon Dioxide 28 mmol/L (22-30); Creatinine 1 0.82 mg/dL (0.52-1.04); EST GLOMERULAR FILTRATION RATE > 60.0 ML/MIN; Glucose 111 mg/dL (74-106); MAGNESIUM 2.3 mg/dL (1.6-2.3); Potassium 4.1 mmol/L (3.5-5.1); SGOT/AST 27 U/L (14-36); SGPT/ALT 20 U/L (0-35); SODIUM 135 mmol/L (137-145); T4 (Thyroxine) 8.61 ug/dL (5.53-10.96); Total Protein 8.8 g/dL (6.3-8.2)
--- NOTE | 2023-08-18 15:23 | XRAY ---
Indication: Chest pain and short of breath. Elevated d-dimer. Multiple contiguous axial images obtained through the chest using 80cc Isovue 370 contrast and PE protocol. Comparison: None Adequate opacification of the pulmonary arteries. No pulmonary embolus. Heart is not enlarged. Aorta is normal in course and caliber. A few tiny mediastinal and right hilar calcifiedno pathologic mediastinal/hilar lymphadenopathy. Lungs demonstrate small right middle lobe calcified granuloma and minimal dependent atelectasis. No suspicious pulmonary mass/nodule, infiltrate, effusion, or pneumothorax. Bony thorax intact. Limited upper abdomen demonstrate incompletely visualized massive left renal hydronephrosis, perinephric fluid/stranding, and 2.3 cm calculus. Impression: 1. Negative pulmonary embolus. No acute cardiopulmonary abnormalities. 2. Incompletely visualized massive left renal hydronephrosis with perinephric fluid/stranding and calculus favoring high grade obstructive uropathy. 3. Incidental old granulomatous disease.
[2023-08-18] MEDS ORDERED: Sodium Chloride 0.9% 500 ML 500 ML IV ONE (15:50)
[2023-08-18] MEDS ORDERED: Sodium Chloride 0.9% 500 ML 500 ML IV SCH (16:00)
--- NOTE | 2023-08-18 17:05 | XRAY ---
Indication: Left hydronephrosis seen on same day CT PE exam. Multiple contiguous axial images obtained through abdomen and pelvis without contrast. Comparison: None CT PE chest reported separately. Massively hydronephrotic and enlarged left kidney with multiple macro calculi including 2.9 x 2.0 x 3.6 cm UPJ staghorn calculus. Perinephric stranding with little to no renal enhancement and no renal excretion is secondary to complete obstructive uropathy. No free fluid/air. Normal right renal excretion with contrast distended urinary bladder due to CT PE exam performed earlier in the day. Incidental 13.7 cm splenomegaly. Noncontrasted stomach and bowels appear nonobstructed with normal appendix. Remaining liver, gallbladder, pancreas, spleen, adrenal glands, right kidney, right ureter, bladder, uterus, and aorta are unremarkable. Osseous structures intact with incidental large large L2 vertebral hemangioma. Impression: 1. Massively enlarged and hydronephrotic left kidney with macro calculi producing complete obstruction as detailed. 2. Incidental splenomegaly and L2 vertebral hemangioma.
[2023-08-18 17:34] LABS: Amphetamine,Urine NEGATIVE (NEGATIVE); Barbiturate,Urine NEGATIVE (NEGATIVE); Benzodiazepine,Urine NEGATIVE (NEGATIVE); Cocaine,Urine NEGATIVE (NEGATIVE); Methadone,Urine NEGATIVE (NEGATIVE); Opiate,Urine NEGATIVE (NEGATIVE); PCP,Urine NEGATIVE (NEGATIVE); THC,Urine POSITIVE (NEGATIVE)
[2023-08-18 17:37] LABS: Appearance Turbid (Clear); Bacteria Many /HPF (None Seen); Bilirubin Negative (Negative); Blood Moderate (Negative); Epithelial Cells Few /HPF (None Seen); Glucose, Urine Negative (Negative); Hyaline Casts NONE SEEN /LPF (0-2); Ketones Negative (Negative); Leukocyte Esterase Large (Negative); Nitrite Negative (Negative); Protein,Urine Dip 30 (Negative); Specific Gravity >=1.030 (1.005-1.030); WBC >100 /HPF (0-5)
[2023-08-18 17:38] LABS: ADD URINE CULTURE? YES (NO)
[2023-08-18] MEDS ORDERED: ROCEPHIN 1 Gm-D5w 50 ml Bag** 1 G/50 ML IVPB IV STA (17:56)
[2023-08-18] MEDS ORDERED: ROCEPHIN 1 Gm-D5w 50 ml Bag** 1 G/50 ML IVPB IV ONE (18:09)
[2023-08-18 18:20] VITALS: BP 94/70; PULSE 89; RESP 29; O2SAT 97
== END 2023-08-18 18:49 | disposition home or self-care (01) ==
LOC: ED 13:29
DX: R00.0 Tachycardia, unspecified (principal); N39.0 Urinary tract infection, site not specified; N13.2 Hydronephrosis with renal and ureteral calculous obstruction; R06.02 Shortness of breath; R07.9 Chest pain, unspecified; R53.1 Weakness; Z79.52 Long term (current) use of systemic steroids; Z79.899 Other long term (current) drug therapy; Z72.0 Tobacco use
CPT/HCPCS: 36000; 36415; 71260; 74176; 80053; 80307; 81001; 83735; 83880; 84436; 84443; 84484; 85025; 85379; 87077; 87086; 87186; 93005; 93041; 94760; 96360; 96365; 96374; 99285; 99291; J0696; A9270-GY